=== PATIENT | female | born 1970 | race Caucasian/White ===

== ENCOUNTER 2016-10-17 22:06 | Emergency (ER) | payer SELFPAY ==
[~2016-10-17] VITALS: Ht 152.4 cm; Wt 87.5 kg
[2016-10-17 22:38] VITALS: Ht 152.4 cm; Wt 87.5 kg
--- NOTE | 2016-10-18 00:46 | ERD ---
ER Documentation Chief Complaint Date/Time DATE: 10/18/16 TIME: 00:32 Chief Complaint Benito Leg pain and swelling x1 month. getting worst and no PMD visit HPI 46-year-old female presented emergency room for bilateral knee pain and swelling for about a month. Patient stated that pain has increased in the past few days. She also stated that 6 months ago the pain was minimal. Pain was described as sharp non-radiating. Denies headache, loss of consciousness, dizziness, blurry vision, changes in vision, photophobia, facial pain, ear pain, throat pain, difficulty swallowing, neck pain, shoulder pain, chest pain, cough, hemoptysis, abdominal pain, back pain, loss of appetite, nausea, vomiting, hematochezia, diarrhea, constipation, urinary symptoms, , the possibility of being , bladder and bowel incontinences, trauma, injury, fall, numbness or tingling sensation, difficulty walking, recent travel, recent exposure to illness, recent antibiotic use in the last 3 months, fever, chills. Allergy: No known drug allergies. PMH: Denies. Family medical history: Denies. AO LMP: 10/04/2016 Medications: Advil. Surgery: Denies. Primary Social History: Not working at this time. Denies. Denies smoking, use of alcohol, use of illegal drugs. ROS All systems reviewed and are negative except as per history of present illness. Medications Home Meds Active Scripts Tramadol HCl (Tramadol HCl) 50 Mg Tablet, 50 MG PO Q6 Y for PAIN, #20 TAB Prov:PASILABAN,KLAR F 10/18/16 Acetaminophen* (Tylophen*) 500 Mg Capsule, 1 CAP PO Q6H Y for PAIN AND OR ELEVATED TEMP, #20 CAP Prov:PASILABAN,KLAR F 10/18/16 Allergies Allergies: Coded Allergies: ibuprofen (Verified Allergy, Intermediate, Hives, 10/17/16) Physical Exam Vitals Vital Signs Date Time Temp Pulse Resp B/P Pulse Ox O2 Delivery O2 Flow Rate FiO2 10/18/16 03:18 76 16 145/76 98 Room Air 10/17/16 22:38 98.7 86 20 179/83 97 Physical Exam CONSTITUTIONAL: Well-appearing; well-nourished; in no apparent distress. HEAD: Normocephalic; atraumatic. EYES: Conjunctiva clear, sclera non-icteric, EOM intact. PERRL Ears: Hearing intact. EACs clear, TMs non-bulging, non-inflamed, translucent & mobile, ossicles normal appearance, No obstructions, no erythema, no discharges Nose: No obstructions. No polyps. No external lesions. Mucosa non-inflamed. No external lesions, septum and turbinates normal. No rhinorrhea. No discharges. Frontal sinus is non-tender to palpation. Maxillary sinus is non-tender to palpation. MOUTH: Moist mucous membranes, no lesion, no obstructions, no vesicles, no thrush, patent airway Throat: Uvula in midline. Right tonsil is +1 with no erythema, no exudate. Left tonsil is +1 with no erythema, no exudate. Tolerating secretions well. Good gag reflex. Patent airway. Neck: Supple, without lesions, bruits, or adenopathy. No mass. Thyroid non- enlarged and non-tender to palpation. CHEST: Symmetrical chest. Respirations even and not labored. No retractions noted. CARDIOVASCULAR: Normal S1, S2. RRR. No murmurs, gallops. RESPIRATORY: Normal chest excursion with respiration; breath sounds clear and equal bilaterally; no wheezes, rhonchi, or rales. Breathing even and unlabored. Speaking in clear, full, and complete sentences w/ ease. ABDOMEN: Normal bowel sounds normal. Soft, round, non-distended, non-guarding, no tenderness, no rebound, no organomegaly, no masses, no pulsating abdominal mass. No hernia. No peritoneal signs. : No CVA tenderness. BACK: Symmetrical shoulder. Spine is midline without deformity, tenderness. No evidence of trauma or deformity. PELVIS: Stable pelvis. No evidence of trauma or deformity. MUSCULOSKELETAL: Normal gait and station. No misalignment, asymmetry, crepitation, defects, tenderness, masses, effusions, decreased range of motion, instability, atrophy or abnormal strength or tone in the head, neck, spine, ribs , pelvis or extremities except bilateral knee swelling without redness and without obvious deformity. Bilateral knee is tender to touch medially. No calf tenderness/redness. NEUROVASCULAR: Distal pulses are present. Pedal pulse are present, equal, and normal. Capillary refills are < 2 seconds. NEUROLOGIC: Alert and oriented x4. Speaks full and clear sentences. Cranial Nerves II-XII normal. Sensation to pain, touch, and proprioception normal. Grossly unremarkable. No neurologic deficits. Romberg test is negative. PSYCHOLOGICAL: The patients mood and manner are appropriate. No hallucinations , delusions. Not SI. Not HI. Has the capacity to decide for self SKIN: Normal for age and ethnicity; warm; dry; good turgor; no apparent lesions or exudates. No rashes, hives, discoloration. Intact. Result Diagram: 10/18/1611410/18/16114 Results 24 hrs Laboratory Tests Test 10/18/16 01:15 White Blood Count 10.010^3/ul Red Blood Count 4.3510^6/ul Hemoglobin 13.2g/dl Hematocrit 40.0% Mean Corpuscular Volume 92.0fl Mean Corpuscular Hemoglobin 30.3pg Mean Corpuscular Hemoglobin Concent 33.0g/dl Red Cell Distribution Width 13.2% Platelet Count 12997^3/UL Mean Platelet Volume 10.3fl Neutrophils % 67.6% Lymphocytes % 23.2% Monocytes % 7.3% Eosinophils % 1.3% Basophils % 0.4% Nucleated Red Blood Cells % 0.0/100WBC Neutrophils # 6.810^3/ul Lymphocytes # 2.310^3/ul Monocytes # 0.710^3/ul Eosinophils # 0.110^3/ul Basophils # 0.010^3/ul Nucleated Red Blood Cells # 0.010^3/ul Sodium Level 136mmol/L Potassium Level 3.3mmol/L Chloride Level 107mmol/L Carbon Dioxide Level 23mmol/L Anion Gap 9 Blood Urea Nitrogen 18mg/dl Creatinine 0.45mg/dl Glucose Level 126mg/dl Calcium Level 9.3mg/dl C-Reactive Protein 1.4mg/dl Current Medications Medications (Trade) Dose Ordered Sig/Dominick Route PRN Reason Start Time Stop Time Status Last Admin Dose Admin Tramadol HCl (Ultram) 50 mg ONCE ONCE PO 10/18/16 01:00 10/18/16 01:01 DC 10/18/16 02:19 Potassium Chloride (Klor-Con 20) 40 meq ONCE STAT PO 10/18/16 02:45 10/18/16 02:48 DC 10/18/16 03:02 Ondansetron HCl (Zofran Tab) 4 mg ONCE ONCE PO 10/18/16 03:00 10/18/16 03:00 DC Ondansetron HCl (Zofran Odt) 4 mg ONCE STAT ODT 10/18/16 02:56 10/18/16 02:58 DC 10/18/16 03:11 Procedures/MDM Examination: Please see physical examination. Disease process, medical treatment was explained to the patient and family member. They verbalized understanding and agreed with the diagnostic tests, medical treatment, and follow-up care. Radiology: Bilateral knee x-ray Impression: No fracture or dislocation. Blood works: The protein is 1.4 mg/dL. Treatment: Tramadol. Potassium 40 mEq by mouth. Re-evaluation: Denies headache, blurry vision, dizziness, neck pain, shoulder pain, chest pain, back pain, difficulty breathing, abdominal pain. No nausea and vomiting. Denies any pain. Denies calf pain. No neurovascular deficits. Consultation: None. Differential diagnosis: Deep vein thrombosis versus fracture versus contusion versus sprain versus rheumatoid arthritis versus osteoarthritis Medical decision makin-year-old female presented emergency room for bilateral knee pain and swelling for about a month. Patient stated that pain has increased in the past few days. She also stated that 6 months ago the pain was minimal. Pain was described as sharp non-radiating. Patient's complaint, patient's history about her complaint, my physical findings, my diagnostic test results, my reevaluation are consistent with my final diagnosis of bilateral knee pain, arthritis. Medications prescribed are the following: Tylenol. Tramadol. Patient and family member are made aware of the side effects and adverse reactions of the medications prescribed. Instructed on when to seek emergent and medical attention in case allergic/anaphylactic reactions or severe side effects and or adverse reactions to medications. Patient and family member verbalized understanding. Patient instructed Instructed to follow-up with his PCP in 24-48 hours. This patient refer patient to chief strategy officer. Patient stated that she will make sure to have her PCP refer her to a chief strategy officer. Instructed to Call 911 for chest pain, shortness of breath. Advised to come back here in ED as soon as possible for severity of symptoms which includes but not limited to: any new symptoms; shortness of breath/difficulty of breathing; cardiovascular changes; severe gastrointestinal symptoms; signs and symptoms of bleeding and or infection; signs of compartment syndrome/neurovascular changes; neurological changes/deficits. Patient and family member verbalized understanding. Upon discharge, patient is alert and oriented x 4, speaks full and clear sentences, denies pain, has no neurological deficits, has no neurovascular deficits, difficulty of breathing. Breathing even and unlabored. Lung sounds are clear to auscultation. Not in distress. Appears comfortable. Ambulatory with steady gait. Appears satisfied with care provided here in ED. Departure Diagnosis: Primary Impression: Knee pain Additional Impression: Arthritis Additional Instructions: Patient instructed Instructed to follow-up with his PCP in 24-48 hours. This patient refer patient to chief strategy officer. Patient stated that she will make sure to have her PCP refer her to a chief strategy officer. Instructed to Call 911 for chest pain, shortness of breath. Advised to come back here in ED as soon as possible for severity of symptoms which includes but not limited to: any new symptoms; shortness of breath/difficulty of breathing; cardiovascular changes; severe gastrointestinal symptoms; signs and symptoms of bleeding and or infection; signs of compartment syndrome/neurovascular changes; neurological changes/deficits. VIVI CAVAZOS Oct 18, 2016 00:46
[2016-10-18] MEDS ORDERED: traMADol 50 MG TAB PO ONE (01:00)
[2016-10-18 01:50] LABS: ADD SCAN DIFF NO
[2016-10-18 01:51] LABS: BASOPHILS % 0.4 % (0.0-2.0); EOSINOPHILS # 0.1 10^3/ul (0.0-0.5); EOSINOPHILS % 1.3 % (0.0-7.0); HEMOGLOBIN 13.2 g/dl (12.0-16.0); LYMPHOCYTES # 2.3 10^3/ul (0.8-2.9); LYMPHOCYTES % 23.2 % (15.0-51.0); MEAN CORPUSCULAR HEMOGLOBIN 30.3 pg (29.0-33.0); MEAN PLATELET VOLUME 10.3 fl (7.4-10.4); MONOCYTE # 0.7 10^3/ul (0.3-0.9); MONOCYTES % 7.3 % (0.0-11.0); NEUTROPHIL # 6.8 10^3/ul (1.6-7.5); NEUTROPHILS % 67.6 % (39.0-77.0); PLATELET COUNT 387 10^3/UL (140-415); RED BLOOD COUNT 4.35 10^6/ul (4.20-5.40); RED CELL DISTRIBUTION WIDTH 13.2 % (11.5-14.5)
[2016-10-18 02:05] LABS: CALCIUM 9.3 mg/dl (8.4-10.2); CREATININE 0.45 mg/dl (0.44-1.00); POTASSIUM 3.3 mmol/L (3.5-5.1)
--- NOTE | 2016-10-18 02:24 | RADRPT ---
PROCEDURE: XR bilateral Knee. CLINICAL INDICATION: Pain TECHNIQUE: AP, lateral and oblique view of the bilateral knee were obtained. COMPARISON: There are no similar studies submitted for comparison. FINDINGS: Osteoarthritic changes are present within both knees with narrowing of the medial compartments. The re is no acute fracture or dislocation.No destructive lesion is identified. There is no joint effusion. IMPRESSION: No fracture or dislocation. RPTAT: HIKT .Perry Capellan MD, MD Date Time Electronically viewed and signed by .Perry Capellan MD, MD on 10/18/2016 02:24 .T/
[2016-10-18 02:29] LABS: C-REACTIVE PROTEIN 1.4 mg/dl (0.0-0.9)
[2016-10-18] MEDS ORDERED: POTASSIUM CHLORIDE (SR) 20 MEQ TAB PO STA (02:45)
[2016-10-18] MEDS ORDERED: ACET500C5 PO (02:49)
[2016-10-18] MEDS ORDERED: TRAM50TA2 PO (02:50)
[2016-10-18] MEDS ORDERED: ONDANSETRON (ODT) 4 MG TAB ODT STA (02:56)
[2016-10-18] MEDS ORDERED: ONDANSETRON 4 MG TAB PO ONE (03:00)
[2016-10-18 03:18] VITALS: BP 145/76; PULSE 76; RESP 16
== END 2016-10-18 03:18 | disposition home or self-care (01) ==
LOC: FTE 22:06
DX: M25.561 Pain in right knee (principal); M25.562 Pain in left knee; M17.0 Bilateral primary osteoarthritis of knee
CPT/HCPCS: 80048; 85025; 86140

== ENCOUNTER 2017-04-17 01:25 | Emergency (ER) | payer MEDICAID ==
[~2017-04-17] VITALS: Ht 162.6 cm; Wt 86.5 kg
[~2017-04-17 01:25] MED LIST: ACET500C5 PO; TRAM50TA2 PO
[2017-04-17 01:29] VITALS: Ht 162.6 cm; Wt 86.5 kg
[2017-04-17 01:55] VITALS: TEMP 98.3
--- NOTE | 2017-04-17 02:19 | ERD ---
ER Documentation Chief Complaint Date/Time DATE: 04/17/17 TIME: 02:16 Chief Complaint cough x 4 days, she had chest wall pain everytime she coughs, vomiting HPI Patient is a 46-year-old female who presents to the ER with nausea, vomiting, dizziness and generalized malaise after eating a cannabis brownie at 11:30 PM. The patient has history of bilateral knee arthritis and this was her first time using cannabis to try to treat her pain. She denies other drug or alcohol use. She denies shortness of breath, abdominal pain. ROS All systems reviewed and are negative except as per history of present illness. Medications Home Meds Active Scripts Tramadol HCl (Tramadol HCl) 50 Mg Tablet, 50 MG PO Q6 Y for PAIN, #20 TAB Prov:TONSADAFVIVI F 10/18/16 Acetaminophen* (Tylophen*) 500 Mg Capsule, 1 CAP PO Q6H Y for PAIN AND OR ELEVATED TEMP, #20 CAP Prov:TONILABARTLUDMILACARLOS F 10/18/16 Reported Medications Dicloxacillin Sodium* (Dynapen*) 250 Mg Cap, 250 MG PO Q6, CAP 04/17/17 Allergies Allergies: Coded Allergies: ibuprofen (Unverified Allergy, Intermediate, Hives, 04/17/17) PMhx/Soc Past medical history: Arthritis Past surgical history: None Social history: Denies alcohol or tobacco History of Surgery: No Anesthesia Reaction: No Hx Neurological Disorder: No Hx Respiratory Disorders: No Hx Cardiac Disorders: No Hx Psychiatric Problems: No Hx Miscellaneous Medical Probl: No Hx Alcohol Use: No Hx Substance Use: Yes (1ST TIME TODAY) Hx Tobacco Use: No Smoking Status: Never smoker FmHx Noncontributory Physical Exam Vitals Vital Signs Date Time Temp Pulse Resp B/P Pulse Ox O2 Delivery O2 Flow Rate FiO2 04/17/17 05:26 81 21 129/71 99 Room Air 04/17/17 04:35 87 17 137/71 99 Room Air 04/17/17 01:55 98.3 93 20 156/74 97 Room Air 04/17/17 01:29 99.6 92 20 141/68 95 Physical Exam Const: Alert, appears slightly anxious, slow reaction time Head: Atraumatic Eyes: Normal Conjunctiva, Mild injection, no pallor, no icterus ENT: Normal External Ears, Nose and Mouth. Tacky mucous membranes Neck: Full range of motion..~ No meningismus. Resp: Clear to auscultation bilaterally, No wheezes, no rales Cardio: Mild tachycardia, regular rhythm, no murmurs Abd: Soft, non tender, non distended. Skin: No petechiae or rashes Back: No midline or flank tenderness Ext: No cyanosis, or edema Neur: Awake and alert, Cranial nerves II through XII intact bilaterally, strength and sensation full in 4 extremities. Psych: Appears anxious Results 24 hrs Current Medications Medications (Trade) Dose Ordered Sig/Dominick Route PRN Reason Start Time Stop Time Status Last Admin Dose Admin Sodium Chloride (NS) 1,000 ml @ 1,000 mls/hr Q1H ONCE IV 04/17/17 02:30 04/17/17 03:29 DC 04/17/17 03:03 Lorazepam (Ativan) 0.5 mg ONCE ONCE IV 04/17/17 02:30 04/17/17 02:31 DC 04/17/17 03:03 Procedures/MDM EKG read by me: Time 140, rate 101 Rhythm: Sinus tachycardia [place]: Normal Intervals: Normal ST-T waves: no ischemic changes Ectopy: No Q-waves: No Impression: No evidence of ischemia or arrhythmia MDM: Patient is a 46-year-old female who presents to the ER with vomiting, dysphoria, and dizziness after eating a cannabis brownie for the first time trying to treat her chronic arthritis. Patient is otherwise well-appearing. She has normal vital signs. She was given Zofran and is tolerating oral intake in the ER. She has no signs of significant dehydration. I do not believe that any laboratory workup was necessary. There is no report of coingestants. The patient was monitored for several hours in the ER and had no further vomiting. She will be discharged home to further metabolize the cannabis and is advised not to use cannabis in the future. Departure Diagnosis: Primary Impression: Vomiting Vomiting type: unspecified Vomiting Intractability: non-intractable Nausea presence: with nausea Qualified Code: R11.2 - Non-intractable vomiting with nausea, unspecified vomiting type Additional Impression: Cannabis intoxication Complication of substance-induced condition: with unspecified complication Qualified Code: F12.929 - Cannabis intoxication with complication Condition: CAM Flores MD Apr 17, 2017 02:19
[2017-04-17] MEDS ORDERED: SOD CHLORIDE 0.9% 1,000 ML IV ONE (02:30)
[2017-04-17] MEDS ORDERED: LORAZEPAM 2 MG INJ IV ONE (02:30)
[2017-04-17] MEDS ORDERED: DIC250 PO (03:40)
[2017-04-17 05:26] VITALS: BP 129/71; PULSE 81; RESP 21
== END 2017-04-17 05:27 | disposition home or self-care (01) ==
LOC: E/R 01:25
DX: R11.2 Nausea with vomiting, unspecified (principal); F12.929 Cannabis use, unspecified with intoxication, unspecified
CPT/HCPCS: 96374; J2060; J7030; Z7502